=== PATIENT | female | born 1995 | race American Indian/Alaskan Native ===

== ENCOUNTER 2019-01-23 08:30 | Emergency (ER) | payer SELFPAY ==
[2019-01-23] MEDS ORDERED: ACETAMINOPHEN 325 MG TAB PO ONE (08:38)
[2019-01-23] MEDS ORDERED: ACETAMINOPHEN 325 MG TAB ONE (08:41)
[2019-01-23] MEDS ORDERED: SODIUM CHLORIDE 0.9% 1000 ML 1,000 ML IV ONE (09:45)
--- NOTE | 2019-01-23 09:49 | Emergency Department Report ---
ED ENT HPI - General Chief complaint: Fever Stated complaint: FLU SX Time Seen by Provider: 01/23/19 09:44 Source: patient Mode of arrival: Ambulatory Limitations: No Limitations - History of Present Illness Initial comments: Patient is 23 years old female with no significant past medical history. Patient presented to the ER complaining of sore throat and difficulty swallowing for the last 2 days. Patient is also had a fever of 102.2. Patient denied any cough, shortness of breast, chest pain, nausea or vomiting. Patient denied any difficulty breathing. MD complaint: sore throat, difficulty swallowing - Related Data Allergies Allergy/AdvReac Type Severity Reaction Status Date / Time shrimp Allergy Unknown Verified 01/23/19 09:44 ED Dental HPI - General Chief complaint: Fever Stated complaint: FLU SX Time Seen by Provider: 01/23/19 09:44 Source: patient Mode of arrival: Ambulatory Limitations: No Limitations - Related Data Allergies Allergy/AdvReac Type Severity Reaction Status Date / Time shrimp Allergy Unknown Verified 01/23/19 09:44 ED Review of Systems ROS: Stated complaint: FLU SX Other details as noted in HPI Comment: All other systems reviewed and negative ENT: throat pain Cardiovascular: palpitations. denies: chest pain Gastrointestinal: denies: abdominal pain, nausea, vomiting Musculoskeletal: denies: back pain Neurological: denies: headache, weakness ED Past Medical Hx - Past Medical History Previous Medical History?: No - Surgical History Past Surgical History?: No - Social History Smoking Status: Current Some Day Smoker Substance Use Type: Marijuana ED Physical Exam - General Limitations: No Limitations General appearance: alert, in no apparent distress - Head Head exam: Present: atraumatic, normocephalic, normal inspection - Eye Eye exam: Present: normal appearance - ENT ENT exam: Present: other (pharyngeal erythema, positive exudate.) - Neck Neck exam: Present: normal inspection, full ROM. Absent: tenderness, meningismus, lymphadenopathy, thyromegaly - Respiratory Respiratory exam: Present: normal lung sounds bilaterally - Cardiovascular Cardiovascular Exam: Present: tachycardia - GI/Abdominal GI/Abdominal exam: Present: soft, normal bowel sounds. Absent: distended, tenderness, guarding, rebound, rigid, organomegaly, mass, bruit, pulsatile mass, hernia - Extremities Exam Extremities exam: Present: normal inspection, full ROM, normal capillary refill. Absent: calf tenderness - Back Exam Back exam: Present: normal inspection. Absent: CVA tenderness (R), CVA tenderness (L) - Neurological Exam Neurological exam: Present: alert, oriented X3, CN II-XII intact - Skin Skin exam: Present: warm, intact, normal color ED Course Vital Signs 01/23/19 08:33 Temperature 102.5 F H Pulse Rate 125 H Respiratory 22 Rate Blood Pressure 147/95 O2 Sat by Pulse 100 Oximetry ED Medical Decision Making - Lab Data Result diagrams: 01/23/19 10:04 01/23/19 10:04 - Medical Decision Making Patient is 23 years old female with no significant past medical history. Patient presented to the ER complaining of sore throat and difficulty swallowing for the last 2 days. Patient is also had a fever of 102.2. Patient denied any cough, shortness of breast, chest pain, nausea or vomiting. Patient denied any difficulty breathing. Labs reviewed and is unremarkable except for positive strep pharyngitis. Patient given Bicillin 1.2 million units. Patient advised to follow-up with her primary care physician in the next 2-3 days and to attend to the ER if symptoms are not improved. Critical care attestation.: If time is entered above; I have spent that time in minutes in the direct care of this critically ill patient, excluding procedure time. ED Disposition Clinical Impression: Strep pharyngitis Disposition: -01 TO HOME OR SELFCARE Is pt being admited?: No Condition: Stable Instructions: Strep Throat (ED) Referrals: [facility] [Provider Group] - 3-5 Days
[2019-01-23 10:43] LABS: Basophils % (Auto) 0.3 % (0.0-1.8); Hematocrit 39.7 % (30.3-42.9); Hemoglobin 13.2 gm/dl (10.1-14.3); Lymphocytes % (Auto) 9.8 % (13.4-35.0); Mean Corpuscular HGB Conc 33 % (30-34); Mean Corpuscular Volume 85 fl (79-97); Monocytes # (Auto) 1.1 K/mm3 (0.0-0.8); Monocytes % (Auto) 11.4 % (0.0-7.3); Platelet Count 202 K/mm3 (140-440); Red Blood Count 4.66 M/mm3 (3.65-5.03); Red Cell Distribution Width 13.8 % (13.2-15.2)
[2019-01-23 10:52] LABS: BUN/Creatinine Ratio 13; Blood Urea Nitrogen 9 mg/dL (7-17); Calcium 8.7 mg/dL (8.4-10.2); Hemolysis Index 19
[2019-01-23] MEDS ORDERED: PENICILLIN G BENZATHINE 1.2 MILLION UNIT/2 ML INJ IM ONE (12:15)
[2019-01-23 13:14] VITALS: BP 141/94
== END 2019-01-23 13:15 | disposition home or self-care (01) ==
LOC: ED 08:30
DX: J02.0 Streptococcal pharyngitis (principal); F17.200 Nicotine dependence, unspecified, uncomplicated; F12.10 Cannabis abuse, uncomplicated; Z91.013 Allergy to seafood
CPT/HCPCS: 36415; 80048; 84703; 85025; 87040; 87400; 87430; 96372; 99283; J0561; J7030